=== PATIENT | male | born 1980 | race Caucasian/White ===

== ENCOUNTER 2018-09-30 11:04 | Day surgery (SDC) | payer SELFPAY ==
[2018-09-30] VITALS (9 sets, daily range): BP systolic 115–137; BP diastolic 80–96; PULSE 78–92
[~2018-09-30] VITALS: Ht 182.9 cm; Wt 168.8 kg
[2018-09-30] MEDS ORDERED: TOPROL XL 25MG25 MG PO (11:19)
[2018-09-30] MEDS ORDERED: ASPIRIN E.C. 8181 MG PO (11:19)
[2018-09-30] MEDS ORDERED: ZYRTEC 10MG10 MG PO (11:20)
[2018-09-30] MEDS ORDERED: NITROSTAT0.4 MG/TAB SL (11:20)
[2018-09-30] MEDS ORDERED: FLONASEALLERGY NS (11:21)
[2018-09-30] MEDS ORDERED: MOTRIN 400400 MG/TAB PO (11:22)
[2018-09-30] MEDS ORDERED: PRILOSEC 20MG20 MG PO (11:22)
[2018-09-30] MEDS ORDERED: PROTONIX 40MG T40 MG PO (11:23)
[2018-09-30] MEDS ORDERED: PROAIR HFA0.09 MG/AC IH (11:24)
[2018-09-30 12:13] LABS: HEMATOCRIT 45.6 % (42.0-52.0); HEMOGLOBIN 15.3 g/dl (13.5-18.0); MEAN CELL VOLUME 89 fl (80.0-100.0); MEAN CORPUSCULAR HEMOGLOBIN 30 pg (27.0-31.0); MEAN CORPUSCULAR HGB CONC 34 g/dl (33.0-37.0); MEAN PLATELET VOLUME 10.9 fl (7.4-10.4); PLATELET COUNT 261 K/mm3 (130-400); RED BLOOD COUNT 5.15 M/mm3 (4.20-5.60); REDCELL DISTRIBUTION WIDTH-CV 12.6 % (11.5-14.5)
[2018-09-30 12:14] LABS: CALCIUM 9.3 mg/dL (8.4-10.2); CREATININE, serum 1.02 (0.66-1.25); POTASSIUM 4.2 mmol/L (3.4-5.0); PROTHROMBIN TIME 11.7 SECONDS (9.7-12.8)
--- NOTE | 2018-09-30 14:13 | NUR ---
SEE MERGE DOCUMENTATION FOR MEDICATION ADMINISTRATION TIMES AND INTRA/POST PROCEDURE SEDATION ASSESSMENTS.
[2018-09-30] MEDS ORDERED: TIAZAC120 MG PO (14:56)
--- NOTE | 2018-09-30 17:30 | NUR ---
PT UP AND AMBULATING IN AND AROUND THE UNIT WITH NO COMPLICATIONS. REMAINING AIR WAS RELEASED IN TR BAND. SITE CONTINUES TO BE C/D/I, NO ACTIVE BLEEDING. GAUZE AND COBAN APPLIED TO RIGHT WRIST. PT TOLERATED INTAKE WITH NO N/V. PT DOES NOT COMPLAIN OF PAIN. PT VOIDED WITH NO COMPLICATIONS. IV WAS DISCONTINUED WITH CATHETER TIP INTACT, NO PHLEBITIS OR INFILTRATION. PT WAS DISCHARGED VIA W/C TO THE CARE OF IN PRIVATE VEHICLE WITH DISCHARGE INSTRUCTIONS IN HAND.
== END 2018-09-30 17:40 | disposition home or self-care (01) ==
LOC: COL.CAR 11:04
PROVIDERS: Internal Medicine Cardiovascular Disease
DX: R94.39 Abnormal result of other cardiovascular function study (principal); J45.909 Unspecified asthma, uncomplicated; K21.9 Gastro-esophageal reflux disease without esophagitis; E66.9 Obesity, unspecified; Z88.0 Allergy status to penicillin; Z87.891 Personal history of nicotine dependence; Z82.49 Family history of ischemic heart disease and other diseases of the circulatory system
CPT/HCPCS: C1769; J1644; J2250; J3010; Q9967